=== PATIENT | female | born 1980 | race Caucasian/White ===

== ENCOUNTER 2024-08-11 04:58 | Inpatient (IN) | payer MEDICARE, MEDICAID, SELFPAY ==
[2024-08-11] VITALS (8 sets, daily range): BP systolic 126–162; BP diastolic 79–100; PULSE 85–96; TEMP 36.4–38.7; O2SAT 92–98; BMI 50.8
--- NOTE | 2024-08-11 06:48 | P.HP_ITS ---
HPI H&P: HPI History of Present Illness Chief complaint: UTI, TRANSFER FROM [facility] Narrative: Last week approximately 9 days ago actually patient had a stent placed after lithotripsy completed, started having increasing flank pain presented to the emergency room found to have acute UTI possible pyelonephritis he was transferred here for IV antibiotics. Stent is still in place, discussed with urology and the recommendation is to leave the stent in place till the infection clears and they will see her in the office next week Opioid HPI Opioid Management Most Recent Pain and Opioid Data: Last Pain Scale 9 08/11/24 09:45 08/11/24 Last Pain Assessment 08/11/24 10:05 Last MAR Pain Assessment 08/11/24 09:45 Last ORT Total Score 4 08/11/24 05:34 08/11/24 Last ORT Risk Category Moderate Risk 08/11/24 05:34 08/11/24 Review of Systems ROS Status of ROS 10 or more systems reviewed and unremark able except as noted in history and below [facility] Medical History (Updated 08/11/24 @ 10:17 by Ford Barnett MD) Bipolar disorder ?F31.9 - Bipolar disorder, unspecified (ICD-10) Asthma ?J45.909 - Unspecified asthma, uncomplicated (ICD-10) Lupus Hypertension ?I10 - Essential (primary) hypertension (ICD-10) Diabetes ?E11.9 - Type 2 diabetes mellitus without complications (ICD-10) Ureteral stent present ?Z96.0 - Presence of urogenital implants (ICD-10) UTI (urinary tract infection) ?N39.0 - Urinary tract infection, site not specified (ICD-10) Family History (Updated 08/11/24 @ 05:28 by Bee Mcmahon) Other Family history not known due to adoption Social History (Updated 08/11/24 @ 05:29 by Bee Mcmahon) Within the past year, how often did you have a drink containing alcohol: monthly or less Within the past year, how often did you have six or more drinks on one occasion: less than monthly Do you use any of these nicotine containing products: vaping products Non-prescribed substance use: denies use Previous occupational history: Disability Highest level of school completed/degree received: high school graduate In a typical week, how many times do you talk on the telephone with family, friends, or neighbors: 3 or more times per week How often do you get together with friends or relatives: 3 or more times per week Little interest or pleasure in doing things: not at all Feeling down, depressed, or hopeless: not at all Feel stressed/tense/nervous/anxious/difficulty sleeping: not at all Meds Home Medications and Allergies Home Medications ?Medication ?Instructions ?Recorded ?Confirmed ?Type amlodipine 10 mg tablet 5 mg PO BID 08/11/24 08/11/24 History clonidine HCl 0.1 mg tablet 0.2 mg PO DAILY 08/11/24 08/11/24 History cyanocobalamin (vitamin B-12) 1,000 mcg PO DAILY 08/11/24 08/11/24 History 1,000 mcg capsule glimepiride 1 mg tablet 1 mg PO DAILY 08/11/24 08/11/24 History hydralazine 100 mg tablet 100 mg PO DAILY 08/11/24 08/11/24 History hydrochlorothiazide 25 mg tablet 25 mg PO DAILY 08/11/24 08/11/24 History hyoscyamine sulfate 0.125 mg 0.125 mg PO Q12H 08/11/24 08/11/24 History sublingual tablet lisinopril 40 mg tablet 40 mg PO DAILY 08/11/24 08/11/24 History olanzapine 15 mg tablet 15 mg PO DAILY 08/11/24 08/11/24 History omeprazole 40 mg capsule,delayed 40 mg PO DAILY 08/11/24 08/11/24 History release propranolol 120 mg capsule,24 120 mg PO DAILY 08/11/24 08/11/24 History hr,extended release tamsulosin 0.4 mg capsule 0.4 mg PO Q24H 08/11/24 08/11/24 History tirzepatide 2.5 mg/0.5 mL 2.5 mg subcut .weekly 08/11/24 08/11/24 History subcutaneous pen injector (Mounjaro) trazodone 100 mg tablet 100 mg PO .QHS 08/11/24 08/11/24 History Allergies Allergy/AdvReac Type Severity Reaction Status Date / Time latex Allergy Intermediate Hives Verified 08/11/24 05:31 aspirin AdvReac Mild Nausea Verified 08/11/24 05:31 peanut butter Allergy Unknown hives Uncoded 08/11/24 05:31 Exam Constitutional Vital Signs, click to edit/add: Last Vital Signs Temp 97.6 F 08/11/24 05:34 Pulse 96 H 08/11/24 05:34 Resp 17 08/11/24 05:34 BP 162/100 H 08/11/24 05:34 Pulse Ox 95 08/11/24 05:38 O2 Del Method Room Air 08/11/24 05:38 Documenting provider has reviewed patient's vital signs: yes Common normals: no apparent distress Respiratory Common normals: normal respiratory effort and no retractions Cardio Common normals: no JVD GI Common normals: Normal to inspection, nondistended, normoactive bowel sounds present Common normals: CVA tenderness Assessment and Plan Assessment and Plan (1) Asthma: (2) Hypertension: (3) Diabetes: (4) Pyelonephritis: (5) Ureteral stent present: Plan Patient presented with flank pain and acute UTI with stent in place and concerning for pyelonephritis Acute pyelonephritis with stent in place-continue with IV antibiotics, will broaden spectrum adding levofloxacin, IV hydration, cultures pending Asthma without acute exacerbation-will continue to monitor Diabetes mellitus-insulin sliding scale Hypertension-continue with home medications Gastric ulcer disease-continue with home medications Admission status: Patient is failed outpatient treatment of acute UTI and now is progressed to pyelonephritis with stents in place, medically necessary treatment will span 2 midnights. Inpatient status.
[2024-08-11] MEDS: TAMSULOSIN HCL 0.4 MG CAPSULE PO (08:34)
[2024-08-11] MEDS: HYOSCYAMINE SULFATE 0.125 MG TAB.SUBL PO (08:34)
[2024-08-11] MEDS: LEVOFLOXACIN IN DEXTROSE 5 % 750 MG/150 ML PREMIX 100 MG IV (08:35)
[2024-08-11] MEDS: ACETAMINOPHEN 325 MG TABLET 650 MG PO (08:35)
[2024-08-11] MEDS: OLANZapine 5 MG TABLET 15 MG PO (08:35)
[2024-08-11] MEDS: CLONIDINE HCL 0.1 MG TABLET 0.2 MG PO (08:35)
[2024-08-11] MEDS: PROPRANOLOL HCL 60 MG CAP.24H 120 MG PO (08:35)
[2024-08-11] MEDS: AMLODIPINE BESYLATE 5 MG TABLET 10 MG PO (08:35)
[2024-08-11] MEDS: CEFTRIAXONE 1,000 MG in 0.9 % SODIUM CHLORIDE 50 ML 100 MG IV (08:39)
--- NOTE | 2024-08-11 08:40 | CM.NOTE ---
Rounds made with Dr. Barnett. Plan of care reviewed with Jamila per Dr. Barnett. NPO for potential surgical intervention.
[2024-08-11] MEDS: OMEPRAZOLE 40 MG CAPSULE.DR PO (08:46)
[2024-08-11 09:23] LABS: Basophils Percent Auto 0.2 % (0.2-2.0); Eosinophils Absolute Auto 0.1 10^3/uL (0.0-0.7); Eosinophils Percent Auto 1.2 % (0.9-7.0); Hematocrit 40.8 % (36.0-48.0); Hemoglobin 12.9 g/dL (12.0-16.0); Immature Granulocytes Abs Auto 0.04 10^3/uL (0.00-0.03); Immature Granulocytes Pct Auto 0.4 % (0.0-0.5); Lymphocytes Absolute Auto 1.5 10^3/uL (1.2-3.8); Lymphocytes Percent Auto 13.9 % (20.5-60.0); Mean Corpuscular HGB Conc 31.6 g/dL (29.9-35.2); Mean Corpuscular Hemoglobin 29.4 pg (26.7-34.0); Mean Corpuscular Volume 92.9 fL (81.0-99.0); Mean Platelet Volume 9.8 fL (9.5-13.5); Monocytes Absolute Auto 0.6 10^3/uL (0.3-0.8); Monocytes Percent Auto 5.6 % (1.7-12.0); Neutrophils Absolute Auto 8.6 10^3/uL (1.4-6.5); Neutrophils Percent Auto 78.7 % (43.0-75.0); Platelet Count 256 10^3/uL (150-450); Red Blood Count 4.39 10^6/uL (4.20-5.40); Red Cell Distribution Width 14.2 % (11.0-15.0); White Blood Count 10.9 10^3/uL (4.0-11.0)
[2024-08-11 09:41] LABS: Alanine Aminotransferase 26 U/L (14-59); Albumin Globulin Ratio 0.7; Albumin Level 3.1 g/dL (3.4-5.0); Alkaline Phosphatase 75 U/L (46-116); Anion Gap 11.5; Aspartate Amino Transferase 17 U/L (15-37); BUN Creatinine Ratio 17.2; Bilirubin Total 0.6 mg/dL (0.2-1.0); Carbon Dioxide 27.3 mmol/L (21.0-32.0); Chloride 106 mmol/L (98-107); Estimated GFR (African America >60 (>=60 mL/min/1.73m^2); Estimated GFR (Non-African Ame >60 (>=60 mL/min/1.73m^2); Globulin 4.2 g/dL; Glucose 116 mg/dL (74-106); Potassium 3.8 mmol/L (3.5-5.1); Sodium 141 mmol/L (136-145); Total Protein 7.3 g/dL (6.4-8.2)
[2024-08-11] MEDS: SOLIFENACIN SUCCINATE 10 MG TABLET PO (09:44)
[2024-08-11] MEDS: TRAMADOL HCL 50 MG TABLET PO (09:44)
[2024-08-11] MEDS: 0.9 % SODIUM CHLORIDE 500 ML IV (11:05)
[2024-08-11] MEDS: 0.9 % SODIUM CHLORIDE 250 ML 10 ML IV (11:07)
[2024-08-11 11:30] LABS: Glucometer 123 mg/dL (74-106)
--- NOTE | 2024-08-11 12:10 | SWNOTE1 ---
Important Message from [employer] reviewed and discussed with patient. Pt. verbalized understanding and signed the form. Original given to patient and copy placed in patient?s chart.
--- NOTE | 2024-08-11 12:10 | SWNOTE1 ---
Pt is independent and has no anticipated discharge needs at this time. SW to follow as needed.
[2024-08-11] MEDS: HYOSCYAMINE SULFATE 0.125 MG TAB.SUBL 0.25 MG SL ×3 (12:15→22:34)
[2024-08-11] MEDS: LACTATED RINGER'S SOLUTION 1,000 ML 100 ML IV ×2 (12:15→22:33)
[2024-08-11 16:15] LABS: Glucometer 136 mg/dL (74-106)
[2024-08-11] MEDS: ACETAMINOPHEN 500 MG TABLET 1000 MG PO (20:31)
[2024-08-11 20:36] LABS: Glucometer 133 mg/dL (74-106)
[2024-08-11] MEDS: TRAZODONE HCL 50 MG TABLET 100 MG PO (22:34)
[2024-08-12] VITALS: BP 108/65; PULSE 95; TEMP 38.1; O2SAT 92
[2024-08-12 04:05] VITALS: O2SAT 91
[2024-08-12] MEDS: TAMSULOSIN HCL 0.4 MG CAPSULE PO (06:46)
[2024-08-12] MEDS: HYOSCYAMINE SULFATE 0.125 MG TAB.SUBL 0.25 MG SL ×2 (06:46→11:37)
[2024-08-12 06:58] LABS: Basophils Percent Auto 0.3 % (0.2-2.0); Eosinophils Absolute Auto 0.1 10^3/uL (0.0-0.7); Eosinophils Percent Auto 1.3 % (0.9-7.0); Hematocrit 34.2 % (36.0-48.0); Hemoglobin 10.8 g/dL (12.0-16.0); Immature Granulocytes Abs Auto 0.02 10^3/uL (0.00-0.03); Immature Granulocytes Pct Auto 0.2 % (0.0-0.5); Lymphocytes Absolute Auto 2.8 10^3/uL (1.2-3.8); Lymphocytes Percent Auto 29.9 % (20.5-60.0); Mean Corpuscular HGB Conc 31.6 g/dL (29.9-35.2); Mean Corpuscular Hemoglobin 29.5 pg (26.7-34.0); Mean Corpuscular Volume 93.4 fL (81.0-99.0); Mean Platelet Volume 10.4 fL (9.5-13.5); Monocytes Absolute Auto 0.8 10^3/uL (0.3-0.8); Monocytes Percent Auto 8.8 % (1.7-12.0); Neutrophils Absolute Auto 5.6 10^3/uL (1.4-6.5); Neutrophils Percent Auto 59.5 % (43.0-75.0); Platelet Count 239 10^3/uL (150-450); Red Blood Count 3.66 10^6/uL (4.20-5.40); Red Cell Distribution Width 14.2 % (11.0-15.0); White Blood Count 9.5 10^3/uL (4.0-11.0)
[2024-08-12 07:15] LABS: Anion Gap 11.5; BUN Creatinine Ratio 17.6; Calcium 7.9 mg/dL (8.5-10.1); Carbon Dioxide 26.4 mmol/L (21.0-32.0); Chloride 107 mmol/L (98-107); Estimated GFR (African America >60 (>=60 mL/min/1.73m^2); Estimated GFR (Non-African Ame >60 (>=60 mL/min/1.73m^2); Glucose 107 mg/dL (74-106); Potassium 3.9 mmol/L (3.5-5.1); Sodium 141 mmol/L (136-145)
[2024-08-12] MEDS: ACETAMINOPHEN 500 MG TABLET 1000 MG PO (07:27)
[2024-08-12] MEDS: LACTATED RINGER'S SOLUTION 1,000 ML 100 ML IV (07:28)
[2024-08-12 07:40] VITALS: BP 119/76; PULSE 93; TEMP 37.9; O2SAT 92
[2024-08-12] MEDS: CEFTRIAXONE 1,000 MG in 0.9 % SODIUM CHLORIDE 50 ML 100 MG IV (08:28)
[2024-08-12] MEDS: HYDRALAZINE HCL 50 MG TABLET 100 MG PO (08:30)
[2024-08-12] MEDS: OLANZapine 5 MG TABLET 15 MG PO (08:30)
[2024-08-12] MEDS: SOLIFENACIN SUCCINATE 10 MG TABLET PO (08:30)
[2024-08-12] MEDS: AMLODIPINE BESYLATE 5 MG TABLET PO (08:31)
[2024-08-12] MEDS: CLONIDINE HCL 0.1 MG TABLET 0.2 MG PO (08:31)
[2024-08-12] MEDS: OMEPRAZOLE 40 MG CAPSULE.DR PO (08:35)
[2024-08-12 09:10] VITALS: TEMP 37.2
[2024-08-12] MEDS: LEVOFLOXACIN IN DEXTROSE 5 % 750 MG/150 ML PREMIX 100 MG IV (09:10)
[2024-08-12 11:18] VITALS: O2SAT 92
--- NOTE | 2024-08-12 12:08 | P.DS_ITS ---
DS: Providers Provider Date of admission: 08/11/24 04:58 Primary care physician: Maxx Miranda MD Admitting clinician: Ford Barnett Attending physician on admission: Ford Barnett Attending physician on discharge: Shaikh Keith Discharging clinician: Shaikh Keith Anticipated date of discharge: 08/12/24 DS: Diagnosis Discharge Diagnosis (1) Pyelonephritis: (2) Ureteral stent present: (3) Asthma: Qualifiers: Asthma complication type: uncomplicated Asthma persistence: intermittent Asthma severity: mild Qualified Code(s): J45.20 - Mild intermittent asthma, uncomplicated (4) Hypertension: Qualifiers: Hypertension type: primary hypertension Qualified Code(s): I10 - Essential (primary) hypertension (5) Diabetes: Qualifiers: Diabetes mellitus complication status: without complication Diabetes mellitus terminal gauger insulin use: without fdc use Diabetes mellitus type: type 2 Qualified Code(s): E11.9 - Type 2 diabetes mellitus without complications DS: Summary Hospital Course Hospital Course: 43-year-old female was transferred from [facility] ER because of bed unavailability for UTI/pyelonephritis. Patient had left ureteral stent placed about 10 days ago prior to her arrival. Patient reported left-sided pain, dysuria for 1 to 2 days. Upon admission, she was found to have UTI/pyelonephritis associated with ureteral stent and secondary to E. coli. No evidence of obstruction on CT abdomen pelvis. She was treated with IV hydration and IV Rocephin/Levaquin. She clinically improved during the course of admission. Patient denies any symptoms today. She is feeling well today. Patient is medically stable for discharge. Will discharge her on oral cefdinir for 7 days. She will need to follow-up with urology. She is scheduled to have her stent removed in 1 week. She will also need to follow-up with PCP in 1 to 2 weeks. Patient educated on worrisome signs and symptoms and was instructed to return to ED if she develop dysuria, fever, pain. Status at Discharge Functional status at discharge: independent ambulation Overall status at discharge: patient is back to baseline Time Spent with Patient Time attestation: Total time spent providing and/or coordinating discharge services: Time spent: greater than 30 minutes Exam Constitutional Vital Signs, click to edit/add: Last Vital Signs Temp 98.9 F 08/12/24 09:10 Pulse 93 H 08/12/24 07:40 Resp 20 08/12/24 07:40 BP 119/76 08/12/24 07:40 Pulse Ox 92 L 08/12/24 11:18 O2 Del Method Room Air 08/12/24 11:18 Documenting provider has reviewed patient's vital signs: yes Common normals: no apparent distress and oriented x3 General appearance: cooperative Respiratory Common normals: normal respiratory effort and clear to auscultation bilaterally Effort & inspection: able to speak in complete sentences Auscultation: clear to auscultation bilaterally Cardio Common normals: regular rate, S1 normal heart sound and S2 normal heart sound Rate: regular rate Heart sounds: S1 normal and S2 normal Extremity Common normals: no clubbing, cyanosis or edema Neuro Common normals: oriented x3, moves all extremities and no focal motor deficits Psych Common normals: mental status grossly normal, denies hallucinations, denies homicidal ideation and denies suicidal ideation DS: Data Data Completed and Pending Labs on day of discharge: Labs from last 24 hours 08/12/24 08/11/24 08/11/24 06:07 20:26 16:12 WBC 9.5 RBC 3.66 L Hgb 10.8 L Hct 34.2 L MCV 93.4 MCH 29.5 MCHC 31.6 RDW 14.2 Plt Count 239 MPV 10.4 Neut % (Auto) 59.5 Lymph % (Auto) 29.9 [place] % (Auto) 8.8 Eos % (Auto) 1.3 Baso % (Auto) 0.3 Neut # (Auto) 5.6 Lymph # (Auto) 2.8 [place] # (Auto) 0.8 Eos # (Auto) 0.1 Baso # (Auto) 0.0 Abs Immat Gran (auto) 0.02 Imm/Tot Granulo (auto) 0.2 Sodium 141 Potassium 3.9 Chloride 107 Carbon Dioxide 26.4 Anion Gap 11.5 BUN 15.0 Creatinine 0.85 Est GFR ( Amer) >60 Est GFR (Non-Af Amer) >60 BUN/Creatinine Ratio 17.6 Glucose 107 H Calcium 7.9 L POC Glucose 133 H 136 H Discharge Plan Discharge Disposition: Home Health Service Discharge Medications: New cefdinir 300 mg capsule 300 mg PO BID Qty: 14 0RF Continued amlodipine 10 mg tablet 5 mg PO BID clonidine HCl 0.1 mg tablet 0.2 mg PO DAILY cyanocobalamin (vitamin B-12) 1,000 mcg capsule 1,000 mcg PO DAILY glimepiride 1 mg tablet 1 mg PO DAILY hydralazine 100 mg tablet 100 mg PO DAILY hydrochlorothiazide 25 mg tablet 25 mg PO DAILY hyoscyamine sulfate 0.125 mg tablet, sublingual 0.125 mg PO Q12H lisinopril 40 mg tablet 40 mg PO DAILY olanzapine 15 mg tablet 15 mg PO DAILY omeprazole 40 mg capsule,delayed release(DR/EC) 40 mg PO DAILY propranolol 120 mg capsule,extended release 24 hr 120 mg PO DAILY tamsulosin 0.4 mg capsule 0.4 mg PO Q24H Mounjaro 2.5 mg/0.5 mL pen injector 2.5 mg SUBCUT .weekly Rx Instructions: On Saturdays trazodone 100 mg tablet 100 mg PO .QHS Activity: increase activity as tolerated Diet: advance to your usual diet Print Language: Azeri Patient Instructions: Urinary Tract Infection in Women (DC), Kidney Infection (DC) Forms: Portal Instructions Follow Up Appointments: Stress Test at [facility]: August 18 at 11:00am (next appointment: August 25). Call Wednesday to follow up with PCP [phone]
--- NOTE | 2024-08-14 15:35 | CM.DCFOLLOWU ---
1st attempt 08/14/24, no answer
--- NOTE | 2024-08-16 15:13 | CM.DCFOLLOWU ---
2nd attempt, no answer
--- NOTE | 2024-08-17 13:39 | CM.DCFOLLOWU ---
08/17- 3rd attempt. No answer
== END 2024-08-12 12:56 | disposition home or self-care (01) | DRG 699 ==
PROVIDERS: Admitting Provider Family Medicine; PCP Family Medicine; Visit Provider Internal Medicine
DX: T83.592A Infection and inflammatory reaction due to indwelling ureteral stent, initial encounter (principal); N10 Acute pyelonephritis; Y84.6 Urinary catheterization as the cause of abnormal reaction of the patient, or of later complication, without mention of misadventure at the time of the procedure; F31.9 Bipolar disorder, unspecified; I10 Essential (primary) hypertension; E11.9 Type 2 diabetes mellitus without complications; B96.20 Unspecified Escherichia coli [E. coli] as the cause of diseases classified elsewhere; J45.20 Mild intermittent asthma, uncomplicated; Z87.442 Personal history of urinary calculi; Z79.899 Other long term (current) drug therapy; Z79.84 Long term (current) use of oral hypoglycemic drugs; Z79.85 Long-term (current) use of injectable non-insulin antidiabetic drugs; Z88.6 Allergy status to analgesic agent; Z91.040 Latex allergy status; Z91.018 Allergy to other foods; Z87.11 Personal history of peptic ulcer disease
CPT/HCPCS: 36415; 80048; 80053; 82948; 85025; 94761; 99406; J0696